=== PATIENT | female | born 1970 | race Caucasian/White ===

== ENCOUNTER → 2016-11-26 | Outpatient (CLI) | payer OTHER | LOC: FIMAGING 10:18 | PROVIDERS: ATTEND Internal Medicine Hematology & Oncology | DX: Z85.3 Personal history of malignant neoplasm of breast (principal) ==

== ENCOUNTER → 2017-11-27 | Outpatient (CLI) | payer OTHER | LOC: FIMAGING 12:56 | PROVIDERS: ATTEND Internal Medicine Hematology & Oncology | DX: D25.1 Intramural leiomyoma of uterus (principal); N85.8 Other specified noninflammatory disorders of uterus; C50.919 Malignant neoplasm of unspecified site of unspecified female breast ==

== ENCOUNTER → 2018-12-30 | Outpatient (CLI) | payer OTHER | LOC: FIMAGING 07:53 | PROVIDERS: ATTEND Internal Medicine Hematology & Oncology | DX: R10.2 Pelvic and perineal pain (principal); D05.11 Intraductal carcinoma in situ of right breast; D48.1 Neoplasm of uncertain behavior of connective and other soft tissue ==

== ENCOUNTER → 2019-01-06 | Outpatient (CLI) | payer OTHER | LOC: FIMAGING 07:05 | PROVIDERS: ATTEND Family Medicine | DX: R10.84 Generalized abdominal pain (principal); K76.9 Liver disease, unspecified; K82.4 Cholesterolosis of gallbladder ==